=== PATIENT | male | born 1960 | race Caucasian/White ===

== ENCOUNTER → 2018-09-23 09:54 | Outpatient (CLI) | payer MEDICARE, OTHER, SELFPAY ==
--- NOTE | 2018-09-23 | US_ITS ---
US abdomen limited History:Acute abdominal pain with fever and vomiting Ordering Physician:Marianna Love Patient Age: 58 years Comparison:None Findings: Pancreas:Unremarkable. No obvious mass or abnormal fluid collection. No ductal dilatation Liver:No focal liver lesions demonstrated. Homogeneous echogenicity. No intrahepatic biliary ductal dilatation evident. There is appropriate direction of blood flow within the portal vein. The portal vein is upper normal at 14 mm. Right Kidney:Right kidney has been removed. Left kidney has a polycystic appearance measuring 11 x 5 x 5 cm. Gallbladder:No gallstones are.. There is a small amount sludge within the gallbladder. Common bile duct is normal at 2 mm. No gallbladder wall thickening or pericholecystic fluid. Impression: 1. Small amount of gallbladder sludge nonspecific. No stones apparent. 2. Absent right kidney with polycystic left kidney. 3. Mild prominence of the portal vein
== END ==
PROVIDERS: PCP Family Medicine; Visit Provider Nurse Practitioner Family
DX: R11.10 Vomiting, unspecified (principal); R50.9 Fever, unspecified; R10.10 Upper abdominal pain, unspecified
CPT/HCPCS: 76705

== ENCOUNTER 2018-10-14 11:22 | Inpatient (IN) ==
--- NOTE | 2018-10-14 11:42 | Emergency Department Note ---
[facility] – [place] Disposition Clinical Impression: Abdominal pain Qualifiers: Abdominal location: left upper quadrant Qualified Code(s): R10.12 - Left upper quadrant pain Disposition: Xfer Other Condition on Discharge: Fair (pt sent to [facility] ER for further evaluation.) Referrals: Demetri Gilman MD [Primary Care Provider] - Medical Decision Making - Richard Inquiry Pt receiving controlled substance: No Vital Signs: 10/14/18 11:45 Temperature 97.9 F Temperature Source Oral Pulse Rate [Left Radial] 77 Respiratory Rate 18 Blood Pressure [Right Arm] 133/88 Blood Pressure Mean [Right Arm] 103 Blood Pressure Source [Right Arm] Automatic Cuff Blood Pressure Position [Right Arm] Sitting 02 Sat by Pulse Oximetry 100 Oxygen Delivery Method Room Air - Lab Data Lab results reviewed: Yes: I reviewed the patient's lab results. UA pos. for proteinuria, hematuria [facility] [place] HPI - General Stated complaint: left side and stomach pain Time Seen by Provider: 10/14/18 11:40 HEENT Symptoms (Recalled from RN notes): No Resp Symptoms (Recalled from RN notes): No Skin Symptoms (Recalled from RN notes): No GI/ Symptoms (Recalled from RN notes): Yes MS Symptoms (Recalled from RN notes): No Card Symptoms (Recalled from RN notes): No Other (Recalled from RN notes): No - History of Present Illness Onset (ago): week(s) Location: abdomen Radiation: abdomen Severity: moderate, severe Consistency: intermittent Relieving factors: none Exacerbating factors: none Treatments prior to arrival: none - Related Data Allergies Allergy/AdvReac Type Severity Reaction Status Date / Time NO KNOWN ALLERGIES Allergy Uncoded 09/28/17 15:29 [facility] History - Hepatitis A Screen Drug use history?: No Attestation statement:: This patient has been screened for Hepatitis A risk factors. I have reviewed the patient's past medical history: Yes Medical History: Reports:: Gall Bladder Disease, Gastroesophageal Reflux Disease(GERD), Hypertension, Renal Disease Other Surgeries: Yes: Other - Social History Educational Level: Attended High School ROS Obtained: Yes Systems reviewed as appropriate & no additional complaints - Constitutional Constitutional: Reports poor appetite, Reports weakness - ENT Ears, Nose, Mouth, and Throat: Denies otalgia, Denies sinus pressure, Denies sore throat - Cardiovascular Cardiovascular: Denies chest pain - Respiratory Respiratory: No chest congestion - Gastrointestinal Gastrointestingal: Reports: abdominal pain, cramping, nausea, vomiting - Genitourinary Male Genitourinary: Reports difficulty urinating, Reports flank pain - Integumentary/Breasts Skin/Breast: Denies rash Physical Exam - General General appearance: alert, in no apparent distress - Head Head exam: atraumatic, normocephalic - Respiratory Respiratory exam: Present: normal lung sounds bilaterally - Cardiovascular Cardiovascular exam: Present: normal rhythm - Abdominal Exam Abdominal exam: Present: soft, tenderness, guarding. Absent: rebound, rigidity Abdominal tenderness: Present: RUQ, LUQ - Back Exam Back exam: Absent: CVA tenderness (R), CVA tenderness (L) - Neurological Exam Neurological exam: Present: alert, oriented X3 - Skin Skin exam: Present: warm, dry, intact, normal color
--- NOTE | 2018-10-14 12:29 | Emergency Department Note ---
ED Disposition Clinical Impression: Acute pancreatitis Qualifiers: Pancreatitis type: unspecified pancreatitis type Acute pancreatitis complication: no infection or necrosis Qualified Code(s): K85.90 - Acute pancreatitis without necrosis or infection, unspecified Disposition: Still a Patient Condition on Discharge: Fair Referrals: Demetri Gilman MD [Primary Care Provider] - - Critical Care Critical Care Time: No Attestation: On 10/14/18, the high probability of a clinically significant, sudden or life threatening deterioration of the following system(s) required my full and direct attention, intervention and personal management. The time I documented below is in addition to time spent performing reported procedures but includes the following listed in this critical care notation. Medical Decision Making - Richard Inquiry Pt receiving controlled substance: No Richard was queried for this patient: Yes Reference #:: [id number] Comment: 3 rxs for gabapentin Vital Signs: 10/14/18 11:45 10/14/18 12:15 Temperature 97.9 F 97.9 F Temperature Source Oral Oral Pulse Rate [Left Radial] 77 77 Respiratory Rate 18 18 Blood Pressure [Right Arm] 133/88 133/88 Blood Pressure Mean [Right Arm] 103 103 Blood Pressure Source [Right Arm] Automatic Cuff Automatic Cuff Blood Pressure Position [Right Arm] Sitting Sitting 02 Sat by Pulse Oximetry 100 100 Oxygen Delivery Method Room Air Room Air - Lab Data Lab Results 10/14/18 11:55: Urine Color Yellow, Urine Appearance Clear, Urine pH 8.5, Ur Specific [place] 1.020, Urine Protein 3+, Urine Glucose (UA) 100, Urine Ketones Negative, Urine Blood Trace, Urine Nitrate Negative, Urine Bilirubin Negative, Urine Urobilinogen 0.2, Ur Leukocyte Esterase Negative 10/14/18 12:27: WBC 4.1 L, RBC 4.76, Hgb 14.0 L, Hct 43.6, MCV 91.6, MCH 29.4, MCHC 32.1, RDW 13.5, Plt Count 232, MPV 7.2 L, Neut % (Auto) 64.1, Lymph % (Auto) 19.4, [place] % (Auto) 12.2 H, Eos % (Auto) 3.7, Baso % (Auto) 0.5, Neut # (Auto) 2.7, Lymph # (Auto) 0.8, [place] # (Auto) 0.5, Eos # (Auto) 0.2, Baso # (Auto) 0.0 10/14/18 12:27: Sodium 137, Potassium 3.7, Chloride 94 L, Carbon Dioxide 35 H, Anion Gap 11.7, BUN 28 H, Creatinine 6.04 H, Estimated Creat Clear 13, Estimated GFR 10 L*, Est GFR ( Amer) 12 L*, Glucose 93, Calcium 9.2, Total Bilirubin 0.4, AST 26, ALT 36, Alkaline Phosphatase 211 H, Total Protein 8.8 H, Albumin 3.9, Globulin 4.9 H, Albumin/Globulin Ratio 0.8 L, Amylase 164 H, Lipase 680 H Result diagrams: 10/14/18 12:27 10/14/18 12:27 - Radiology Data #1 Image(s): Chest Image Reviewed: Yes I have reviewed radiologist's interpretation IMPRESSION: COPD, no acute finding Dictated By: Mike Charles MD Signed By: <Electronically signed by Mike Charles MD in OV> 10/14/18 1259 - CT Data CT Scan: Abdomen, Pelvis Time Received: 13:[address] Reviewed: Yes: I have viewed the radiologist's interpretation Findings Narrative: IMPRESSION: 1. Noncalcified pulmonary nodules in the lung bases nonspecific. Consider [address] follow-up 2. Status post renal transplant with renal allograft in the right lower quadrant. No hydronephrosis. There is some cortical thinning of the transplanted kidney. Minimal stranding noted the fat in the ureter of the transplant nonspecific. Urinary bladder wall slightly thickened at the ureteral insertion 3. Fluid-filled loops of jejunum nonspecific but could be related to enteritis 4. The kidneys are abnormal with heterogeneous density with renal cysts noted. Ultrasound of the kidneys may be of further value if clinically warranted Dictated By: Mike Charles MD Signed By: <Electronically signed by Mike Charles MD in OV> 10/14/18 1312 - Physician Consults Physician Consulted: Mukul Time: 13:30 Reason -: Admission Comment/Response: Agrees to admit the patient to the hospital. We discussed the patient's clinical information, including history, exam, laboratory and radiology results and ED course. Per hospital procedure, I will write temporary bridge inpatient orders on the patient. Specific orders requested by the admitting physician: Normal saline at 75 cc/h, antiemetics, n.p.o., morphine 2 mg every 4 hours as needed. General Adult HPI - General Chief complaint: Abdominal Pain Stated complaint: left side and stomach pain Time Seen by Provider: 10/14/18 12:26 Mode of Arrival: Ambulatory Limitations: No Limitations Description of Symptoms (Recalled from ER Triage Doc. by RN): to ed per pvt car with c/o lt side upper abd pain x 2 weeks seen PCP and had a ultrasound "showed sludge" pt with hx of ckf currently on dialysis. last dialysis today - History of Present Illness HPI narrative: Complains of mid abdominal pain all the way across his whole abdomen into his left flank for over 2 weeks. Pain is constant, but worsens at times. Sometimes keeps him from sleep. Associated with nausea and vomiting. Says he vomits every time he eats or drinks anything. Saw his primary care provider a week and a half ago. Had a gallbladder ultrasound done as an outpatient which showed sludge. Prescribed a medication which sounds like Zofran, says it did not help. Tried to get into see his physician today because of continued symptoms, but says he could not be seen until 9 AM tomorrow, therefore came to the urgent treatment center and was sent from there to the emergency room. Denies fever. Denies diarrhea or constipation. Bowel movement yesterday. Patient is a hemodialysis patient for 10 years. He gets his dialysis in [place] on Wednesday, Wednesday, Wednesday. He had dialysis today. Onset (ago): week(s) Location: abdomen Severity: moderate, severe Relieving factors: none Exacerbating factors: none Treatments prior to arrival: none - Related Data Home Medications Medication Instructions Recorded Confirmed Atorvastatin Calcium [Atorvastatin 40 mg PO DAILY 10/14/18 10/14/18 40mg Tab] Ergocalciferol (Vitamin D2) 50,000 unit PO DAILY 10/14/18 10/14/18 [Drisdol 50,000 units (1.25mg) capsule] Ferrous Gluconate [Ferrous 324 mg PO DAILY 10/14/18 10/14/18 Gluconate 324mg Tab] Folic Acid [Folic Acid 1mg tablet] 1,000 mcg PO DAILY 10/14/18 10/14/18 Gabapentin [Gabapentin 100mg Cap] 300 mg PO TID 10/14/18 10/14/18 Hydralazine HCl [Apresoline 10mg 10 mg PO DAILY 10/14/18 10/14/18 tablet] Isosorbide Dinitrate [Isordil 10mg 10 mg PO DAILY 10/14/18 10/14/18 tablet] Lanthanum Carbonate [Fosrenol] 1,000 mg PO DAILY 10/14/18 10/14/18 Metoclopramide HCl [Metoclopramide 10 mg PO DAILY 10/14/18 10/14/18 10mg Tablet] Metoprolol Succinate 50 mg PO DAILY 10/14/18 10/14/18 Omeprazole [Omeprazole 20mg 20 mg PO DAILY 10/14/18 10/14/18 Capsule] Ondansetron [Zofran 4mg ODT] 4 mg PO Q6 PRN 10/14/18 10/14/18 Sulfamethoxazole/Trimethoprim 1 each PO BID 10/14/18 10/14/18 [Bactrim DS tablet] levoFLOXacin [Levofloxacin 750MG 750 mg PO DAILY 10/14/18 10/14/18 Tablet] raNITIdine HCl [Zantac] 150 mg PO DAILY 10/14/18 10/14/18 Allergies Allergy/AdvReac Type Severity Reaction Status Date / Time NO KNOWN ALLERGIES Allergy Uncoded 09/28/17 15:29 [facility] History - Hepatitis A Screen Drug use history?: No High risk sexual behaviors?: No History of sexually transmitted infection?: No Currently employed?: No Childcare worker?: No Do you have indoor plumbing?: No Do you have electricity?: Yes Attestation statement:: This patient has been screened for Hepatitis A risk factors. I have reviewed the patient's past medical history: Yes Medical History: Reports:: Gall Bladder Disease, Gastroesophageal Reflux Disease(GERD), Hypertension, Renal Disease Other Surgeries: Yes: Other - Social History Educational Level: Attended High School Alcohol Intake: never - Psychiatric History Expresses thoughts of harming self/others: None Suicide Plan Description: No Plan ROS Obtained: Yes All systems reviewed & no additional complaints - Constitutional Constitutional: Denies fever(s) - Gastrointestinal Gastrointestingal: Reports: abdominal pain, nausea, vomiting. Denies: constipation, diarrhea Physical Exam - General General appearance: alert, in no apparent distress - Head Head exam: atraumatic, normocephalic - Eye Eye exam: Present: normal appearance, PERRL, EOMI - ENT ENT exam: Present: mucous membranes moist - Neck Neck exam: Present: normal inspection, trachea midline - Chest Chest inspection: Present: normal inspection, symmetric chest wall rise - Respiratory Respiratory exam: Present: normal lung sounds bilaterally. Absent: respiratory distress - Cardiovascular Cardiovascular exam: Present: regular rate, normal rhythm, normal heart sounds - Abdominal Exam Abdominal exam: Present: soft, tenderness, guarding. Absent: rebound, rigidity Comment: Moderately tender epigastrium, periumbilical area, left upper quadrant, and left mid abdomen. - Extremities Exam Extremities exam: Present: normal inspection - Neurological Exam Neurological exam: Present: alert, oriented X3 - Psychiatric Psychiatric exam: Present: normal affect, normal mood - Skin Skin exam: Present: warm, dry
[2018-10-14 12:45] LABS: Basophils % 0.5 % (0.1-2.0); Eosinophils # 0.2 K/mm3 (0.0-0.4); Eosinophils % 3.7 % (0.1-12.0); Hematocrit 43.6 % (42.0-52.0); Lymphocytes # 0.8 K/mm3 (0.7-4.5); Lymphocytes % 19.4 % (10-50); Mean Corpuscular HGB Conc 32.1 g/dL (31.8-35.4); Mean Corpuscular Hemoglobin 29.4 pg (27.0-31.2); Mean Corpuscular Volume 91.6 fl (80-94); Mean Platelet Volume 7.2 fl (7.4-10.4); Monocytes # 0.5 K/mm3 (0.1-1.0); Monocytes % 12.2 % (1.7-9.3); Neutrophils # 2.7 K/mm3 (1.8-7.8); Neutrophils % 64.1 % (37.0-80.0); Platelet Count 232 K/mm3 (142-424); Red Blood Count 4.76 M/mm3 (4.60-6.20); Red Cell Distribution Width 13.5 % (11.5-17.5); White Blood Count 4.1 K/mm3 (4.8-10.8)
[2018-10-14 12:58] LABS: Albumin Level 3.9 gm/dL (3.4-5.0); Albumin/Globulin Ratio 0.8 (1.1-1.8); Anion Gap 11.7 mEq/L (5-15); Bilirubin,Total 0.4 mg/dL (0.2-1.0); Calcium 9.2 mg/dL (8.5-10.1); Globulin 4.9 gm/dl (1.3-3.2); Potassium 3.7 mmoL/L (3.5-5.1); Total Protein,Serum 8.8 gm/dL (6.4-8.2)
--- NOTE | 2018-10-14 15:20 | Pharmacy Consult Notes ---
[facility] Pharmacy VTE Monitoring - Patient Demographics Admission date: 10/14/18 Report Date: 10/14/18 Time: 15:20 Allergies/Adverse Reactions: Patient Allergies NO KNOWN ALLERGIES Allergy (Uncoded 09/28/17 15:29) Height: 1.63 m Weight: 69.853 kg Patient Problems: Current Active Problems Acute pancreatitis (Acute) - VTE Risk Labs: VTE Related Lab Results Hgb 14.0 g/dL (14.1-18.0) L 10/14/18 12:27 Hct 43.6 % (42.0-52.0) 10/14/18 12:27 Plt Count 232 K/mm3 (142-424) 10/14/18 12:27 BUN 28 mg/dL (7-18) H 10/14/18 12:27 Creatinine 6.04 mg/dL (0.70-1.30) H 10/14/18 12:27 Estimated Creat Clear 13 mL/min (50-200) 10/14/18 12:27 Was VTE Risk Assessment Performed: Yes VTE Score: 1 VTE Risk Level: Low Risk - Prophylaxis VTE Prophylaxis Ordered?: Yes Types of VTE Prophylaxis: TEDS Knee High Location of Applied Device: Bilateral Lower Extremeties - VTE Diagnosis Confirmed Treatment or plan recommended: Continue Current Treatment
--- NOTE | 2018-10-14 17:35 | History & Physical Report ---
*Admission Date: 10/14/18 *Chief complaint: Abdominal pain *History of present illness: 58-year-old male with end-stage renal disease who is status post kidney transplant presented to the emergency department with episodes of periumbilical abdominal pain that radiates to both the right and left side that has been present off and on for 2 weeks. Patient was seen in the office 2 weeks ago and a gallbladder ultrasound was ordered which showed some sludge. He continues to have episodes of crampy abdominal pain that are sometimes associated with vomiting. He does not believe he has had any fevers. He presented to the urgent treatment clinic and was referred over to the emergency department for further evaluation. Workup in the emergency department was significant for mild elevations of both amylase and lipase with a CT scan more consistent with enteritis. Patient has been admitted for IV fluids and pain control and antiemetics. Patient has end-stage renal disease and undergoes hemodialysis on Mondays, Wednesdays, and Fridays [facility] History Medical History: Reports:: Coronary Artery Disease, Gall Bladder Disease, Gastroesophageal Reflux Disease(GERD), Hypertension, Renal Disease Denies:: Cancer, Diabetes Mellitus Type 1, Diabetes Mellitus Type 2 Comment: End-stage renal disease-hemodialysis 3 days a week Other Surgeries: Yes: Cardiac Catheterization, Coronary Stent, Other (kidney transplant) Amputation: No - *Social History Educational Level: Completed High School Smoking Status: Never smoker Alcohol Intake: never Occupational Status: disabled - Psychiatric History Expresses thoughts of harming self/others: None Suicide Plan Description: No Plan *Family Hx:: Hypertension Review of Systems - Review of Systems Review of systems:: pertinent systems reviewed and negative unless documented below - Constitutional Denies body ache(s), Denies chills, Denies fever(s) - *Cardiovascular Denies chest pain at rest - *Respiratory Denies change in phlegm color, Denies chest congestion, Denies cough - *Gastrointestinal Reports cramping, Reports nausea, Reports vomiting, Denies belching, Denies bloating, Denies heartburn, Denies pain with swallowing - *Genitourinary Denies difficulty urinating - *Neurologic Reports weakness Meds Home Medications Medication Instructions Recorded Confirmed Type Atorvastatin Calcium [Atorvastatin 40 mg PO DAILY 10/14/18 10/14/18 History 40mg Tab] Ergocalciferol (Vitamin D2) 50,000 unit PO WEEKLY 10/14/18 10/14/18 History [Drisdol 50,000 units (1.25mg) capsule] Ferrous Gluconate [Ferrous 324 mg PO DAILY 10/14/18 10/14/18 History Gluconate 324mg Tab] Folic Acid [Folic Acid 1mg tablet] 1 mg PO DAILY 10/14/18 10/14/18 History Gabapentin [Gabapentin 100mg Cap] 100 mg PO BID 10/14/18 10/14/18 History Hydralazine HCl [Apresoline 10mg 10 mg PO BID 10/14/18 10/14/18 History tablet] Isosorbide Dinitrate [Isordil 10mg 10 mg PO BID 10/14/18 10/14/18 History tablet] Lanthanum Carbonate [Fosrenol] 1,000 mg PO DAILY 10/14/18 10/14/18 History Metoclopramide HCl [Metoclopramide 10 mg PO DAILY 10/14/18 10/14/18 History 10mg Tablet] Metoprolol Succinate 100 mg PO DAILY 10/14/18 10/14/18 History Omeprazole [Omeprazole 20mg 20 mg PO DAILY 10/14/18 10/14/18 History Capsule] Ondansetron [Zofran 4mg ODT] 4 mg PO Q6HP PRN 10/14/18 10/14/18 History Sulfamethoxazole/Trimethoprim 1 each PO BID 10/14/18 10/14/18 History [Bactrim DS tablet] levoFLOXacin [Levofloxacin 750MG 750 mg PO DAILY 10/14/18 10/14/18 History Tablet] raNITIdine HCl [Zantac] 150 mg PO BID 10/14/18 10/14/18 History Allergies Allergy/AdvReac Type Severity Reaction Status Date / Time NO KNOWN ALLERGIES Allergy Uncoded 09/28/17 15:29 Exam Vital signs and Labs for Last 24 Hours: Temp Pulse Resp BP Pulse Ox 98.1 F 92 H 16 139/88 95 10/14/18 15:32 10/14/18 15:32 10/14/18 15:32 10/14/18 15:32 10/14/18 15:32 Laboratory Results - last 24 hr 10/14/18 11:55: Urine Color Yellow, Urine Appearance Clear, Urine pH 8.5, Ur Specific [place] 1.020, Urine Protein 3+, Urine Glucose (UA) 100, Urine Ketones Negative, Urine Blood Trace, Urine Nitrate Negative, Urine Bilirubin Negative, Urine Urobilinogen 0.2, Ur Leukocyte Esterase Negative 10/14/18 12:27: WBC 4.1 L, RBC 4.76, Hgb 14.0 L, Hct 43.6, MCV 91.6, MCH 29.4, MCHC 32.1, RDW 13.5, Plt Count 232, MPV 7.2 L, Neut % (Auto) 64.1, Lymph % (Auto) 19.4, [place] % (Auto) 12.2 H, Eos % (Auto) 3.7, Baso % (Auto) 0.5, Neut # (Auto) 2.7, Lymph # (Auto) 0.8, [place] # (Auto) 0.5, Eos # (Auto) 0.2, Baso # (Auto) 0.0 10/14/18 12:27: Sodium 137, Potassium 3.7, Chloride 94 L, Carbon Dioxide 35 H, Anion Gap 11.7, BUN 28 H, Creatinine 6.04 H, Estimated Creat Clear 13, Estimated GFR 10 L*, Est GFR ( Amer) 12 L*, Glucose 93, Calcium 9.2, Total Bilirubin 0.4, AST 26, ALT 36, Alkaline Phosphatase 211 H, Total Protein 8.8 H, Albumin 3.9, Globulin 4.9 H, Albumin/Globulin Ratio 0.8 L, Amylase 164 H, Lipase 680 H I & O for Last 24 hours: Intake & Output 10/12/18 10/13/18 10/14/18 10/15/18 11:59 11:59 11:59 11:59 Weight 154 lb 120 lb 2 oz - Constitutional no acute distress - *Routine Respiratory Exam Present: CTA bilaterally - *Routine Cardiovascular Exam Present: RRR, Normal S1, Normal S2 - *Routine Abdominal Exam Present: soft, normoactive bowel sounds, tenderness (Mild). Absent: distended, rebound, guarding, firm, rigid, mass Assessment and Plan (1) Acute pancreatitis Current visit: Yes Status: Acute Qualifiers: Pancreatitis type: unspecified pancreatitis type Acute pancreatitis complication: no infection or necrosis Qualified Code(s): K85.90 - Acute pancreatitis without necrosis or infection, unspecified Category: Medical Code(s): K85.90 - Acute pancreatitis without necrosis or infection, unspecified - Assessment and plan all Dx Assessment and Plan for all problems:: Patient has been admitted for IV fluids, intravenous narcotics and antiemetics. He will be kept n.p.o. overnight.
--- NOTE | 2018-10-15 07:20 | Progress Note ---
Internal Medicine - PN: Subj *Date: 10/15/18 *Time: 07:18 Interval history: Patient has no new complaints this morning. He reports that he had abdominal pain the night long. He had some brief nausea. He did not vomit. He did not have any diarrhea. He did not have any fevers. His nurse reports he did complain of pain and nausea at one point and was medicated and once his pain resolved so did his nausea. He admits he is hungry this morning Exam Vital signs and Labs for Last 24 Hours: Temp Pulse Resp BP Pulse Ox 97.8 F 84 18 136/78 97 10/15/18 04:00 10/15/18 04:00 10/15/18 04:00 10/15/18 04:00 10/15/18 04:00 Laboratory Results - last 24 hr 10/14/18 11:55: Urine Color Yellow, Urine Appearance Clear, Urine pH 8.5, Ur Specific [place] 1.020, Urine Protein 3+, Urine Glucose (UA) 100, Urine Ketones Negative, Urine Blood Trace, Urine Nitrate Negative, Urine Bilirubin Negative, Urine Urobilinogen 0.2, Ur Leukocyte Esterase Negative 10/14/18 12:27: WBC 4.1 L, RBC 4.76, Hgb 14.0 L, Hct 43.6, MCV 91.6, MCH 29.4, MCHC 32.1, RDW 13.5, Plt Count 232, MPV 7.2 L, Neut % (Auto) 64.1, Lymph % (Auto) 19.4, [place] % (Auto) 12.2 H, Eos % (Auto) 3.7, Baso % (Auto) 0.5, Neut # (Auto) 2.7, Lymph # (Auto) 0.8, [place] # (Auto) 0.5, Eos # (Auto) 0.2, Baso # (Auto) 0.0 10/14/18 12:27: Sodium 137, Potassium 3.7, Chloride 94 L, Carbon Dioxide 35 H, Anion Gap 11.7, BUN 28 H, Creatinine 6.04 H, Estimated Creat Clear 13, Estimated GFR 10 L*, Est GFR ( Amer) 12 L*, Glucose 93, Calcium 9.2, Total Bilirubin 0.4, AST 26, ALT 36, Alkaline Phosphatase 211 H, Total Protein 8.8 H, Albumin 3.9, Globulin 4.9 H, Albumin/Globulin Ratio 0.8 L, Amylase 164 H, Lipase 680 H I & O for Last 24 hours: Intake & Output 10/12/18 10/13/18 10/14/18 10/15/18 11:59 11:59 11:59 11:59 Intake Total 1026 / 1026 Balance 1026 / 1026 Weight 154 lb 120 lb 2 oz Narrative: He appears well and not in any distress. The abdomen is thin, flat, soft with minimal left lower quadrant tenderness. Bowel sounds are present Assessment and Plan (1) Acute pancreatitis Current visit: Yes Status: Acute Qualifiers: Pancreatitis type: unspecified pancreatitis type Acute pancreatitis complication: no infection or necrosis Qualified Code(s): K85.90 - Acute pancreatitis without necrosis or infection, unspecified Category: Medical Code(s): K85.90 - Acute pancreatitis without necrosis or infection, unspecified - Assessment and plan all Dx Assessment and Plan for all problems:: Await labs a.m. Patient's beginning to feel better and his CT scan as well as his current symptoms would really support more of a prolonged enteritis. Patient will be given clear liquids today. Should pain worsen he will be made n.p.o. again. I have added Bentyl 10 mg 3 times daily for abdominal cramping
[2018-10-15 07:23] LABS: Anion Gap 13.4 mEq/L (5-15); Potassium 4.4 mmoL/L (3.5-5.1)
--- NOTE | 2018-10-16 07:29 | Discharge Summary ---
General - General Admission date:: 10/14/18 Discharge date: 10/16/18 HPI HPI: 58-year-old male with end-stage renal disease who is status post kidney transplant presented to the emergency department with episodes of periumbilical abdominal pain that radiates to both the right and left side that has been present off and on for 2 weeks. Patient was seen in the office 2 weeks ago and a gallbladder ultrasound was ordered which showed some sludge. He continues to have episodes of crampy abdominal pain that are sometimes associated with vomiting. He does not believe he has had any fevers. He presented to the urgent treatment clinic and was referred over to the emergency department for further evaluation. Workup in the emergency department was significant for mild elevations of both amylase and lipase with a CT scan more consistent with enteritis. Patient has been admitted for IV fluids and pain control and antiemetics. Patient has end-stage renal disease and undergoes hemodialysis on Mondays, Wednesdays, and Fridays Hospital Course Hospital Course: Patient was admitted and made n.p.o., placed on IV fluids and ordered intravenous narcotics and antiemetics for pain and nausea respectively. Patient had occasional episodes of pain that were usually relieved with morphine. Nausea was treated with Phenergan. After the initial 24 hours of admission patient's diet was advanced to clear liquids. His exam was really more consistent with an enteritis than it was pancreatitis. CT scan was not supportive of pancreatitis either. Pancreatic enzymes were mildly elevated. On October 15 patient tolerated liquids and required pain medication 1 time as well as antiemetic one time. Patient only had nausea while hospitalized and did not have any vomiting nor did he have diarrhea. He was kept on normal saline at 50- 75 mL's per hour while hospitalized. Low rate was used due to patient's end- stage renal disease as I did not want to fluid overload him. On the morning of the patient was still having some mild discomfort at times but not enough to require medication. He was tolerating liquids. He was discharged home. His diagnosis is a prolonged enteritis. Patient will follow-up in my office on Wednesday of this week. He was discharged home with an antiemetic and an oral narcotic Objective Vital signs: Temp Pulse Resp BP Pulse Ox 97.6 F 71 16 130/80 96 10/16/18 04:00 10/16/18 04:00 10/16/18 04:00 10/16/18 04:00 10/16/18 04:00 no acute distress - *Routine Abdominal Exam Present: soft, normoactive bowel sounds. Absent: tenderness, distended, rebound, guarding, firm, rigid Results Labs on day of discharge: Labs from last 24 hours 10/15/18 06:48 Sodium 139 Potassium 4.4 Chloride 99 Carbon Dioxide 31 Anion Gap 13.4 BUN 44 H D Creatinine 8.37 H D Estimated Creat Clear 7 Estimated GFR 7 L* Est GFR ( Amer) 8 L* D Glucose 79 Calcium 8.0 L D Lipase 306 DS: Diagnosis - Discharge Diagnosis (1) Enteritis Status: Acute (2) Acute pancreatitis Status: Acute Discharge Plan - Patient Discharge Instructions Patient Instructions: DI for Pancreatitis - Follow up Plan Follow up with: Demetri Gilman MD [Primary Care Provider] - 10/21/18 1:00 pm Disposition: Home, Self-[facility] Medications: Home Medications Medication Instructions Recorded Confirmed Type Atorvastatin Calcium [Atorvastatin 40 mg PO DAILY 10/14/18 10/14/18 History 40mg Tab] Ergocalciferol (Vitamin D2) 50,000 unit PO WEEKLY 10/14/18 10/14/18 History [Drisdol 50,000 units (1.25mg) capsule] Ferrous Gluconate [Ferrous 324 mg PO DAILY 10/14/18 10/14/18 History Gluconate 324mg Tab] Folic Acid [Folic Acid 1mg tablet] 1 mg PO DAILY 10/14/18 10/14/18 History Gabapentin [Gabapentin 100mg Cap] 100 mg PO BID 10/14/18 10/14/18 History Hydralazine HCl [Apresoline 10mg 10 mg PO BID 10/14/18 10/14/18 History tablet] Isosorbide Dinitrate [Isordil 10mg 10 mg PO BID 10/14/18 10/14/18 History tablet] Lanthanum Carbonate [Fosrenol] 1,000 mg PO DAILY 10/14/18 10/14/18 History Metoclopramide HCl [Metoclopramide 10 mg PO DAILY 10/14/18 10/14/18 History 10mg Tablet] Metoprolol Succinate 100 mg PO DAILY 10/14/18 10/14/18 History Omeprazole [Omeprazole 20mg 20 mg PO DAILY 10/14/18 10/14/18 History Capsule] Sulfamethoxazole/Trimethoprim 1 each PO BID 10/14/18 10/14/18 History [Bactrim DS tablet] levoFLOXacin [Levofloxacin 750MG 750 mg PO DAILY 10/14/18 10/14/18 History Tablet] raNITIdine HCl [Zantac] 150 mg PO BID 10/14/18 10/14/18 History Dicyclomine HCl [Bentyl 10mg 10 mg PO BID #10 capsule 10/16/18 Rx capsule] Hydrocodone/Acetaminophen [[place] 1 each PO BIDP PRN 5 Days #10 tab 10/16/18 Rx 5-325 Tablet] Ondansetron [Zofran 4mg ODT] 4 mg PO Q6HP PRN #30 tab.rapdis 10/16/18 Rx Prescriptions/Medication Reconciliation: New Hydrocodone/Acetaminophen [[place] 5-325 Tablet] 1 each PO BIDP PRN 5 Days #10 tab PRN Reason: Moderate Pain Dicyclomine HCl [Bentyl 10mg capsule] 10 mg PO BID #10 capsule Continue Omeprazole [Omeprazole 20mg Capsule] 20 mg PO DAILY Folic Acid [Folic Acid 1mg tablet] 1 mg PO DAILY Ferrous Gluconate [Ferrous Gluconate 324mg Tab] 324 mg PO DAILY Ergocalciferol (Vitamin D2) [Drisdol 50,000 units (1.25mg) capsule] 50,000 unit PO WEEKLY raNITIdine HCl [Zantac] 150 mg PO BID Metoprolol Succinate 100 mg PO DAILY Isosorbide Dinitrate [Isordil 10mg tablet] 10 mg PO BID Hydralazine HCl [Apresoline 10mg tablet] 10 mg PO BID Atorvastatin Calcium [Atorvastatin 40mg Tab] 40 mg PO DAILY Ondansetron [Zofran 4mg ODT] 4 mg PO Q6HP PRN #30 tab.rapdis PRN Reason: Nausea Gabapentin [Gabapentin 100mg Cap] 100 mg PO BID Lanthanum Carbonate [Fosrenol] 1,000 mg PO DAILY Discontinued levoFLOXacin [Levofloxacin 750MG Tablet] 750 mg PO DAILY Sulfamethoxazole/Trimethoprim [Bactrim DS tablet] 1 each PO BID Metoclopramide HCl [Metoclopramide 10mg Tablet] 10 mg PO DAILY
== END 2018-10-16 11:19 | disposition home or self-care (01) | DRG 391 ==
LOC: UTC 11:22 → 2ND 13:35
PROVIDERS: ADMIT Family Medicine; ATTEND Family Medicine
CPT/HCPCS: 36415; 71020; 71046; 74176; 80048; 80053; 81003; 82150; 83690; 85025; 99284; J2405

== ENCOUNTER 2018-10-21 17:59 | Inpatient (IN) ==
--- NOTE | 2018-10-21 19:08 | Emergency Department Note ---
[facility] Disposition Clinical Impression: Abdominal pain, generalized Vomiting Qualifiers: Vomiting type: unspecified Vomiting Intractability: unspecified Nausea presence: with nausea Qualified Code(s): R11.2 - Nausea with vomiting, unspecified Disposition: Admitted as Observation Condition on Discharge: Fair Medical Decision Making - Medical Records Medical records reviewed: Yes: I reviewed the patient's medical records. - Richard Inquiry Pt receiving controlled substance: No Richard was queried for this patient: No Vital Signs: 10/21/18 18:20 10/21/18 19:13 10/21/18 20:42 Temperature 98.1 F 98.2 F Temperature Source Oral Oral Pulse Rate Pulse Rate [Right Brachial] 114 H 102 H 101 H Respiratory Rate 18 16 16 Blood Pressure Blood Pressure [Right Arm] 119/87 109/73 L 118/72 Blood Pressure Mean [Right Arm] 97 85 87 Blood Pressure Source [Right Arm] Automatic Cuff Automatic Cuff Automatic Cuff Blood Pressure Position [Right Arm] Sitting Sitting Sitting 02 Sat by Pulse Oximetry 98 97 100 Oxygen Delivery Method Room Air Room Air 10/21/18 21:05 10/21/18 22:52 Temperature 98.2 F Temperature Source Oral Pulse Rate 99 H Pulse Rate [Right Brachial] 99 H Respiratory Rate 16 16 Blood Pressure 123/81 Blood Pressure [Right Arm] 123/81 Blood Pressure Mean [Right Arm] 95 Blood Pressure Source [Right Arm] Automatic Cuff Blood Pressure Position [Right Arm] Sitting 02 Sat by Pulse Oximetry 100 Oxygen Delivery Method Room Air Room Air - Lab Data Lab Results 10/21/18 19:25: WBC 7.6, RBC 5.14, Hgb 16.2, Hct 46.9, MCV 91.1, MCH 31.4 H, MCHC 34.5, RDW 14.1, Plt Count 271, MPV 7.3 L, Neut % (Auto) 78.7, Lymph % (Auto) 12.4, [place] % (Auto) 8.0, Eos % (Auto) 0.4, Baso % (Auto) 0.5, Neut # (Auto) 5.9, Lymph # (Auto) 0.9, [place] # (Auto) 0.6, Eos # (Auto) 0.0, Baso # (Auto) 0.0 10/21/18 20:20: Sodium 136, Potassium 5.3 H, Chloride 91 L, Carbon Dioxide 34 H, Anion Gap 16.3 H, BUN 21 H, Creatinine 7.73 H, Estimated Creat Clear 9, Estimated GFR 7 L*, Est GFR ( Amer) 9 L*, Glucose 110 H, Calcium 9.4, Total Bilirubin 0.5, AST 21, ALT 29, Alkaline Phosphatase 264 H, Total Protein 9.4 H, Albumin 4.3, Globulin 5.1 H, Albumin/Globulin Ratio 0.8 L 10/21/18 20:20: Troponin I 0.06, Amylase 121 H, Lipase 259 Result diagrams: 10/21/18 19:25 10/21/18 20:20 Orders (Tests/Meds): ED MEDICATIONS Generic Name Dose Route Start Last Admin Trade Name Freq PRN Reason Stop Dose Admin Dicyclomine HCl 10 mg 10/22/18 09:00 Bentyl 10mg Capsule PO 11/21/18 08:59 BID [facility] Ergocalciferol 50,000 unit 10/21/18 22:34 Drisdol 50,000 Units (1.25mg) Capsule PO 11/20/18 22:33 WEEKLY [facility] Folic Acid 1 mg 10/22/18 09:00 Folic Acid 1mg Tablet PO 11/21/18 08:59 DAILY [facility] Gabapentin 100 mg 10/22/18 09:00 Neurontin 100mg Capsule PO 11/21/18 08:59 BID [facility] Hydralazine HCl 10 mg 10/22/18 09:00 Apresoline 10mg Tablet PO 11/21/18 08:59 BID [facility] Lactated Ringer's 1,000 mls @ 100 mls/hr 10/21/18 22:34 Lactated Ringer's 1000 Ml Bag IV 11/20/18 22:33 .Q10H [facility] Isosorbide Dinitrate 10 mg 10/22/18 09:00 Isordil 10mg Tablet PO 11/21/18 08:59 BID [facility] Metoprolol Succinate 100 mg 10/22/18 09:00 Toprol Xl 100mg Tablet PO 11/21/18 08:59 DAILY [facility] Non-Formulary Medication 324 mg 10/22/18 09:00 Ferrous Gluconate [Ferrous Gluconate 324mg Tab] PO 11/21/18 08:59 DAILY [facility] Non-Formulary Medication 1,000 mg 10/22/18 09:00 Lanthanum Carbonate [Fosrenol] PO 11/21/18 08:59 DAILY [facility] Ondansetron HCl 4 mg 10/21/18 22:34 Zofran 4mg/2ml Vial IV 11/20/18 22:33 Q8HP PRN Nausea Ondansetron HCl 4 mg 10/21/18 22:34 Zofran 4mg Odt PO 11/20/18 22:33 Q6HP PRN Nausea Sodium Chloride 10 ml 10/21/18 22:34 Saline Flush 10ml Syringe IV 11/20/18 19:19 NEEDED PRN Maintain IV Site Sodium Chloride 10 ml 10/21/18 22:34 Saline Flush 10ml Syringe IV 11/20/18 22:33 NEEDED PRN Maintain IV Site Discontinued Medications Generic Name Dose Route Start Last Admin Trade Name Freq PRN Reason Stop Dose Admin Famotidine 20 mg 10/21/18 19:42 10/21/18 19:53 Pepcid 20mg/2ml Vial IV 10/21/18 19:43 20 mg ONCE ONE Administration Sodium Chloride 1,000 mls @ 999 mls/hr 10/21/18 19:45 Sod Chlor 0.9% 1000ml Bag IV 10/21/18 20:45 .Q1H1M [facility] Morphine Sulfate 4 mg 10/21/18 19:42 10/21/18 19:53 Morphine 4mg/Ml Syringe IV 10/21/18 19:43 4 mg ONCE ONE Administration Promethazine HCl 12.5 mg 10/21/18 19:42 10/21/18 19:53 Phenergan 25mg/Ml 1ml Vial IV 10/21/18 19:43 12.5 mg ONCE ONE Administration Sodium Chloride 10 ml 10/21/18 19:20 10/21/18 19:40 Saline Flush 10ml Syringe IV 11/20/18 19:19 10 ml NEEDED PRN Administration Maintain IV Site Sodium Chloride 25 ml 10/21/18 19:42 10/21/18 20:00 Sod Chlor 0.9% 25ml Bag IV 10/21/18 19:43 25 ml ONCE ONE Administration ORDERS Category Date Time Status CT abdomen pelvis wo con Stat Cat Scan 10/21/18 19:42 Taken Urinalysis and Microscopic Routine Lab 10/21/18 Ordered [facility] HPI - General Stated complaint: stomach problems,weakness Time Seen by Provider: 10/21/18 18:40 Mode of Arrival: Family Vehicle Source of Information: Patient Limitations: No Limitations Description of Symptoms (Recalled from Triage Doc. by RN): C/O CHILLS,BODY ACHES,VOMITING,WEAKNESS, LOWER ABDOMINAL CRAMPING AND IS A DIALYSIS PATIENT. HAD DIALYSIS TODAY. WAS ADMITTED TO HOSPITAL LAST WEDNESDAY FOR PANCREATITIS HEENT Symptoms (Recalled from RN notes): No Resp Symptoms (Recalled from RN notes): No Skin Symptoms (Recalled from RN notes): No MS Symptoms (Recalled from RN notes): No Functional Status (Recalled from RN notes): N/A - History of Present Illness Provider Complaint: He c/o abdominal pain. His pain worsened after his hemodialysis treatment today. He is also having fever and chills. He was ho spitalized 1 week ago here for pancreatitis and enteritis. Radiation: abdomen Severity scale (1-10): 8 - Related Data Home Medications Medication Instructions Recorded Confirmed RX: Atorvastatin Calcium 40 mg PO DAILY 10/14/18 10/14/18 [Atorvastatin 40mg Tab] RX: Ergocalciferol (Vitamin D2) 50,000 unit PO WEEKLY 10/14/18 10/14/18 [Drisdol 50,000 units (1.25mg) capsule] RX: Ferrous Gluconate [Ferrous 324 mg PO DAILY 10/14/18 10/14/18 Gluconate 324mg Tab] RX: Folic Acid [Folic Acid 1mg 1 mg PO DAILY 10/14/18 10/14/18 tablet] RX: Gabapentin [Gabapentin 100mg 100 mg PO BID 10/14/18 10/14/18 Cap] RX: Hydralazine HCl [Apresoline 10 mg PO BID 10/14/18 10/14/18 10mg tablet] RX: Isosorbide Dinitrate [Isordil 10 mg PO BID 10/14/18 10/14/18 10mg tablet] RX: Lanthanum Carbonate [Fosrenol] 1,000 mg PO DAILY 10/14/18 10/14/18 RX: Metoprolol Succinate 100 mg PO DAILY 10/14/18 10/14/18 RX: Omeprazole [Omeprazole 20mg 20 mg PO DAILY 10/14/18 10/14/18 Capsule] RX: raNITIdine HCl [Zantac] 150 mg PO BID 10/14/18 10/14/18 Previous Rx's Medication Instructions Recorded RX: Dicyclomine HCl [Bentyl 10mg 10 mg PO BID #10 capsule 10/16/18 capsule] RX: Ondansetron [Zofran 4mg 4 mg PO Q6HP PRN #30 tab.rapdis 10/16/18 ODT] Allergies Allergy/AdvReac Type Severity Reaction Status Date / Time No Known Allergies Allergy Verified 10/21/18 18:26 - Worker's Comp Is this a Worker's Comp case?: No [facility] History - Hepatitis A Screen Drug use history?: No High risk sexual behaviors?: No History of sexually transmitted infection?: No Currently employed?: No Childcare worker?: No Do you have indoor plumbing?: Yes Do you have electricity?: Yes Attestation statement:: This patient has been screened for Hepatitis A risk factors. I have reviewed the patient's past medical history: Yes Medical History: Reports:: Coronary Artery Disease, Gall Bladder Disease, Gastroesophageal Reflux Disease(GERD), Hypertension, Renal Disease Denies:: Cancer, Diabetes Mellitus Type 1, Diabetes Mellitus Type 2 Comment: End-stage renal disease-hemodialysis 3 days a week Other Surgeries: Yes: Cardiac Catheterization, Coronary Stent, Other (kidney transplant) Amputation: No - Social History Smoking Status: Unknown if ever smoked Tobacco Type: smokeless tobacco Alcohol Intake: never Occupational Status: disabled - Psychiatric History Expresses thoughts of harming self/others: None Suicide Plan Description: No Plan Family Hx:: Hypertension ROS Obtained: Yes All systems reviewed & no additional complaints - Constitutional Constitutional: Reports as per HPI, Reports chills, Reports fever(s) - Eyes Eyes: Reports blurry vision - ENT Ears, Nose, Mouth, and Throat: Reports system reviewed and no additional complaints, except as docu - Cardiovascular Cardiovascular: Denies chest pain, Denies chest pain at rest - Respiratory Respiratory: Yes system reviewed and no additional complaints, except as docu, No chest congestion, No cough, No dyspnea, No dyspnea on exertion, No coughing up blood - Gastrointestinal Gastrointestingal: Reports: as per HPI - Musculoskeletal Musculoskeletal: Reports system reviewed and no additional complaints, except as docu - Integumentary/Breasts Skin/Breast: Denies rash - Neurologic Neurologic: Reports system reviewed and no additional complaints, except as docu Physical Exam - General General appearance: alert, in no apparent distress - Head Head exam: atraumatic, normocephalic, normal inspection - Eye Eye exam: Present: normal appearance, PERRL, EOMI - ENT ENT exam: Present: normal exam, normal oropharynx, mucous membranes moist, TM's normal bilaterally, normal external ear exam - Chest Chest inspection: Present: normal inspection, symmetric chest wall rise. Absent: tenderness - Respiratory Respiratory exam: Present: normal lung sounds bilaterally. Absent: respiratory distress, wheezes - Cardiovascular Cardiovascular exam: Present: regular rate, normal rhythm. Absent: JVD - Abdominal Exam Abdominal exam: Present: tenderness, guarding, rigidity, diminished bowel sounds. Absent: rebound Abdominal tenderness: Present: RUQ, RLQ, LUQ, LLQ, moderate - Extremities Exam Extremities exam: Present: normal inspection, full ROM, normal capillary refill. Absent: calf tenderness - Neurological Exam Neurological exam: Present: alert, oriented X3 - Skin Skin exam: Present: warm, dry, intact, normal color - Lymphatic Lymphatic Findings: no adenopathy
[2018-10-21 19:32] LABS: Basophils % 0.5 % (0.1-2.0); Eosinophils % 0.4 % (0.1-12.0); Hematocrit 46.9 % (42.0-52.0); Hemoglobin 16.2 g/dL (14.1-18.0); Lymphocytes # 0.9 K/mm3 (0.7-4.5); Lymphocytes % 12.4 % (10-50); Mean Corpuscular HGB Conc 34.5 g/dL (31.8-35.4); Mean Corpuscular Hemoglobin 31.4 pg (27.0-31.2); Mean Corpuscular Volume 91.1 fl (80-94); Mean Platelet Volume 7.3 fl (7.4-10.4); Monocytes # 0.6 K/mm3 (0.1-1.0); Neutrophils # 5.9 K/mm3 (1.8-7.8); Neutrophils % 78.7 % (37.0-80.0); Platelet Count 271 K/mm3 (142-424); Red Blood Count 5.14 M/mm3 (4.60-6.20); Red Cell Distribution Width 14.1 % (11.5-17.5); White Blood Count 7.6 K/mm3 (4.8-10.8)
--- NOTE | 2018-10-21 19:47 | Emergency Department Note ---
ED Disposition Condition on Discharge: Fair - Critical Care Critical Care Time: No <Jovan Ling - Last Filed: 10/21/18 19:51> Condition on Discharge: Good Time of Disposition: 21:58 - Critical Care Critical Care Time: No <Manoj Munoz - Last Filed: 10/21/18 22:07> Clinical Impression: Abdominal pain, generalized Vomiting Qualifiers: Vomiting type: unspecified Vomiting Intractability: unspecified Nausea presence: with nausea Qualified Code(s): R11.2 - Nausea with vomiting, unspecified Disposition: Admitted as Observation Attestation: On 10/21/18, the high probability of a clinically significant, sudden or life threatening deterioration of the following system(s) required my full and direct attention, intervention and personal management. The time I documented below is in addition to time spent performing reported procedures but includes the following listed in this critical care notation. Medical Decision Making - Richard Inquiry Pt receiving controlled substance: Yes Richard was queried for this patient: Yes Reference #:: [id number] Risks and benefits of using a controlled substance: were not discussed with pt by me Comment: 5 rxs. last rx 10 norco on 10/17/18. other rxs are for gabapentin. - Lab Data Result diagrams: 10/21/18 19:25 <Jovan Ling - Last Filed: 10/21/18 19:51> - Lab Data Result diagrams: 10/21/18 19:25 10/21/18 20:20 <Manoj Munoz - Last Filed: 10/21/18 22:07> Vital Signs: 10/21/18 18:20 10/21/18 19:13 10/21/18 20:42 Temperature 98.1 F 98.2 F Temperature Source Oral Oral Pulse Rate [Right Brachial] 114 H 102 H 101 H Respiratory Rate 18 16 16 Blood Pressure [Right Arm] 119/87 109/73 L 118/72 Blood Pressure Mean [Right Arm] 97 85 87 Blood Pressure Source [Right Arm] Automatic Cuff Automatic Cuff Automatic Cuff Blood Pressure Position [Right Arm] Sitting Sitting Sitting 02 Sat by Pulse Oximetry 98 97 100 Oxygen Delivery Method Room Air Room Air 10/21/18 21:05 Temperature Temperature Source Pulse Rate [Right Brachial] 99 H Respiratory Rate 16 Blood Pressure [Right Arm] 123/81 Blood Pressure Mean [Right Arm] 95 Blood Pressure Source [Right Arm] Automatic Cuff Blood Pressure Position [Right Arm] Sitting 02 Sat by Pulse Oximetry 100 Oxygen Delivery Method Room Air - Lab Data Lab Results 10/21/18 19:25: WBC 7.6, RBC 5.14, Hgb 16.2, Hct 46.9, MCV 91.1, MCH 31.4 H, MCHC 34.5, RDW 14.1, Plt Count 271, MPV 7.3 L, Neut % (Auto) 78.7, Lymph % (Auto) 12.4, Bradford % (Auto) 8.0, Eos % (Auto) 0.4, Baso % (Auto) 0.5, Neut # (Auto) 5.9, Lymph # (Auto) 0.9, Bradford # (Auto) 0.6, Eos # (Auto) 0.0, Baso # (Auto) 0.0 10/21/18 20:20: Sodium 136, Potassium 5.3 H, Chloride 91 L, Carbon Dioxide 34 H, Anion Gap 16.3 H, BUN 21 H, Creatinine 7.73 H, Estimated Creat Clear 9, Chiqui mated GFR 7 L*, Est GFR ( Amer) 9 L*, Glucose 110 H, Calcium 9.4, Total Bilirubin 0.5, AST 21, ALT 29, Alkaline Phosphatase 264 H, Total Protein 9.4 H, Albumin 4.3, Globulin 5.1 H, Albumin/Globulin Ratio 0.8 L 10/21/18 20:20: Troponin I 0.06, Amylase 121 H, Lipase 259 Orders (Tests/Meds): ED MEDICATIONS Generic Name Dose Route Start Last Admin Trade Name Freq PRN Reason Stop Dose Admin Sodium Chloride 10 ml 10/21/18 19:20 10/21/18 19:40 Saline Flush 10ml Syringe IV 11/20/18 19:19 10 ml NEEDED PRN Administration Maintain IV Site Discontinued Medications Generic Name Dose Route Start Last Admin Trade Name Freq PRN Reason Stop Dose Admin Famotidine 20 mg 10/21/18 19:42 10/21/18 19:53 Pepcid 20mg/2ml Vial IV 10/21/18 19:43 20 mg ONCE ONE Administration Sodium Chloride 1,000 mls @ 999 mls/hr 10/21/18 19:45 Sod Chlor 0.9% 1000ml Bag IV 10/21/18 20:45 .Q1H1M [facility] Morphine Sulfate 4 mg 10/21/18 19:42 10/21/18 19:53 Morphine 4mg/Ml Syringe IV 10/21/18 19:43 4 mg ONCE ONE Administration Promethazine HCl 12.5 mg 10/21/18 19:42 10/21/18 19:53 Phenergan 25mg/Ml 1ml Vial IV 10/21/18 19:43 12.5 mg ONCE ONE Administration Sodium Chloride 25 ml 10/21/18 19:42 10/21/18 20:00 Sod Chlor 0.9% 25ml Bag IV 10/21/18 19:43 25 ml ONCE ONE Administration ORDERS Category Date Time Status CT abdomen pelvis wo con Stat Cat Scan 10/21/18 19:42 Taken Urinalysis and Microscopic Stat Lab 10/21/18 19:20 Ordered General Adult HPI - General Mode of Arrival: Ambulatory Limitations: No Limitations Description of Symptoms (Recalled from ER Triage Doc. by RN): Pt is having abd pain, weak, body aches, denies fever at this time. <Jovan Ling - Last Filed: 10/21/18 19:51> <Manoj Munoz - Last Filed: 10/21/18 22:07> - General Chief complaint: Abdominal Pain Stated complaint: stomach problems,weakness Time Seen by Provider: 10/21/18 19:30 - History of Present Illness HPI narrative: The patient has been having abdominal pain for about 3 weeks but admitted to this hospital 1 week ago for abdominal pain. Had mildly elevated pancreas enzymes. Had findings of possible enteritis on CT scan. He states the pain never went away but became more severe yesterday and has also been vomiting for 2 days. All complains of weakness and body aches. He has chills, but no fever. No diarrhea. He is a dialysis patient, gets dialysis Wednesday, Wednesday, and Wednesday in [place]. He had dialysis today. Has had an outpatient gallbladder ultrasound within the past couple of weeks that showed sludge. (Jovan Ling) - Related Data Home Medications Medication Instructions Recorded Confirmed Atorvastatin Calcium [Atorvastatin 40 mg PO DAILY 10/14/18 10/14/18 40mg Tab] Ergocalciferol (Vitamin D2) 50,000 unit PO WEEKLY 10/14/18 10/14/18 [Drisdol 50,000 units (1.25mg) capsule] Ferrous Gluconate [Ferrous 324 mg PO DAILY 10/14/18 10/14/18 Gluconate 324mg Tab] Folic Acid [Folic Acid 1mg tablet] 1 mg PO DAILY 10/14/18 10/14/18 Gabapentin [Gabapentin 100mg Cap] 100 mg PO BID 10/14/18 10/14/18 Hydralazine HCl [Apresoline 10mg 10 mg PO BID 10/14/18 10/14/18 tablet] Isosorbide Dinitrate [Isordil 10mg 10 mg PO BID 10/14/18 10/14/18 tablet] Lanthanum Carbonate [Fosrenol] 1,000 mg PO DAILY 10/14/18 10/14/18 Metoprolol Succinate 100 mg PO DAILY 10/14/18 10/14/18 Omeprazole [Omeprazole 20mg 20 mg PO DAILY 10/14/18 10/14/18 Capsule] raNITIdine HCl [Zantac] 150 mg PO BID 10/14/18 10/14/18 Previous Rx's Medication Instructions Recorded Dicyclomine HCl [Bentyl 10mg 10 mg PO BID #10 capsule 10/16/18 capsule] Ondansetron [Zofran 4mg ODT] 4 mg PO Q6HP PRN #30 tab.rapdis 10/16/18 Allergies Allergy/AdvReac Type Severity Reaction Status Date / Time No Known Allergies Allergy Verified 10/21/18 18:26 [facility] History - Hepatitis A Screen Drug use history?: No High risk sexual behaviors?: No History of sexually transmitted infection?: No Currently employed?: No Childcare worker?: No Do you have indoor plumbing?: Yes Do you have electricity?: Yes I have reviewed the patient's past medical history: Yes Medical History: Reports:: Coronary Artery Disease, Gall Bladder Disease, Gastroesophageal Reflux Disease(GERD), Hypertension, Renal Disease Denies:: Cancer, Diabetes Mellitus Type 1, Diabetes Mellitus Type 2 Comment: End-stage renal disease-hemodialysis 3 days a week Other Surgeries: Yes: Cardiac Catheterization, Coronary Stent, Other (kidney transplant) Amputation: No - Social History Smoking Status: Unknown if ever smoked Tobacco Type: smokeless tobacco Alcohol Intake: never Occupational Status: disabled - Psychiatric History Expresses thoughts of harming self/others: None Suicide Plan Description: No Plan Family Hx:: Hypertension <Jovan Ling - Last Filed: 10/21/18 19:51> - Hepatitis A Screen Attestation statement:: This patient has been screened for Hepatitis A risk factors. ROS Obtained: Yes All systems reviewed & no additional complaints - Constitutional Constitutional: Reports body ache, Reports chills, Reports fatigue, Denies fever(s) - Gastrointestinal Gastrointestingal: Reports: abdominal pain, nausea, vomiting. Denies: diarrhea <Jovan Ling - Last Filed: 10/21/18 19:51> Physical Exam - General General appearance: alert - Head Head exam: atraumatic, normocephalic - Eye Eye exam: Present: normal appearance, PERRL, EOMI - Neck Neck exam: Present: normal inspection, trachea midline - Chest Chest inspection: Present: normal inspection, symmetric chest wall rise - Respiratory Respiratory exam: Present: normal lung sounds bilaterally. Absent: respiratory distress - Cardiovascular Cardiovascular exam: Present: normal rhythm, tachycardia, normal heart sounds - Abdominal Exam Abdominal exam: Present: soft, tenderness, guarding. Absent: distention - Extremities Exam Extremities exam: Present: normal inspection, full ROM - Neurological Exam Neurological exam: Present: alert, oriented X3 - Psychiatric Psychiatric exam: Present: normal affect, normal mood - Skin Skin exam: Present: warm, dry <VaughnvijayJovan medellin - Last Filed: 10/21/18 19:51> - General Comment: Throwing up into trash can (Jovan Ling)
[2018-10-21 20:49] LABS: Albumin Level 4.3 gm/dL (3.4-5.0); Albumin/Globulin Ratio 0.8 (1.1-1.8); Anion Gap 16.3 mEq/L (5-15); Bilirubin,Total 0.5 mg/dL (0.2-1.0); Calcium 9.4 mg/dL (8.5-10.1); Globulin 5.1 gm/dl (1.3-3.2); Potassium 5.3 mmoL/L (3.5-5.1); Total Protein,Serum 9.4 gm/dL (6.4-8.2)
[2018-10-22 06:36] LABS: Basophils # 0.1 K/mm3 (0-0.2); Eosinophils # 0.2 K/mm3 (0.0-0.4); Eosinophils % 2.7 % (0.1-12.0); Hematocrit 43.2 % (42.0-52.0); Lymphocytes # 1.4 K/mm3 (0.7-4.5); Lymphocytes % 24.5 % (10-50); Mean Corpuscular HGB Conc 32.8 g/dL (31.8-35.4); Mean Corpuscular Hemoglobin 30.1 pg (27.0-31.2); Mean Corpuscular Volume 91.7 fl (80-94); Mean Platelet Volume 7.6 fl (7.4-10.4); Monocytes # 0.7 K/mm3 (0.1-1.0); Monocytes % 11.8 % (1.7-9.3); Neutrophils # 3.4 K/mm3 (1.8-7.8); Platelet Count 218 K/mm3 (142-424); Red Blood Count 4.71 M/mm3 (4.60-6.20); Red Cell Distribution Width 14.3 % (11.5-17.5); White Blood Count 5.7 K/mm3 (4.8-10.8)
[2018-10-22 06:47] LABS: Albumin Level 3.7 gm/dL (3.4-5.0); Anion Gap 13.7 mEq/L (5-15); Bilirubin,Total 0.5 mg/dL (0.2-1.0); Calcium 8.9 mg/dL (8.5-10.1); Potassium 4.7 mmoL/L (3.5-5.1)
[2018-10-22 06:48] LABS: Albumin/Globulin Ratio 0.9 (1.1-1.8); Globulin 4.3 gm/dl (1.3-3.2)
[2018-10-22 07:22] LABS: Hemoglobin 14.3 g/dL (14.1-18.0)
--- NOTE | 2018-10-22 07:25 | History & Physical Report ---
*Admission Date: 10/22/18 *Chief complaint: Vomiting *History of present illness: 58-year-old male with end-stage renal disease who is also status post renal transplant presented to the emergency department with 2 days of vomiting. Patient was admitted to the hospital 1 week ago with similar complaint. He r eports vomiting and nausea with poor p.o. intake. Intake is included primarily liquids. He tells me yesterday morning he was nauseous prior to his dialysis treatment. He began vomiting at dialysis. He continued to have episodes of vomiting throughout the day until he presented to the emergency department. He continued retching in the emergency department. Of note a CT scan of the abdomen and pelvis was performed once again which actually by radiologist reading has shown improvement compared to a week ago when his CT scan showed findings consistent with enteritis. Amylase and lipase performed in the ER were also decreased compared to 1 week prior. While patient did not have any significant abnormal findings on exam, imaging, labs, he did continue to vomit in the emergency department so was admitted for IV fluids and antiemetics. After arrival to the floor the patient did not have any further vomiting. This morning he is tolerating a liquid diet [facility] History Medical History: Reports:: Coronary Artery Disease, Gall Bladder Disease, Gastroesophageal Reflux Disease(GERD), Hypertension, Renal Disease (End-stage renal disease with hemodialysis --) Denies:: Cancer, Diabetes Mellitus Type 1, Diabetes Mellitus Type 2, MRSA Have you ever received a pneumonia vaccine?: Yes Have you received a flu vaccine this season?: No Other Surgeries: Yes: Cardiac Catheterization, Coronary Stent, Other (kidney transplant) Amputation: No - *Social History Educational Level: Attended Grade School Smoking Status: Unknown if ever smoked Tobacco Type: smokeless tobacco Alcohol Intake: never Alcohol Intake Frequency:: holidays/special occasions only Occupational Status: disabled Housing: house Household Members: none Travel in the last 8 weeks: None - Psychiatric History Expresses thoughts of harming self/others: None Suicide Plan Description: No Plan *Family Hx:: Hypertension Review of Systems - Review of Systems Review of systems:: pertinent systems reviewed and negative unless documented below - Constitutional Reports fatigue, Denies anorexia, Denies body ache(s), Denies chills, Denies daytime sleepiness - *Cardiovascular Denies chest pain, Denies chest pain at rest - *Respiratory Denies change in phlegm color, Denies chest congestion - *Gastrointestinal Reports abdominal pain, Reports nausea, Reports vomiting, Denies belching, Denies bloating, Denies change in bowel habits, Denies change in stools, Denies loose stools, Denies bright, red blood in stools, Denies pain with swallowing - *Genitourinary Denies difficulty urinating Meds Home Medications Medication Instructions Recorded Confirmed Type Atorvastatin Calcium [Atorvastatin 40 mg PO DAILY 10/14/18 10/14/18 History 40mg Tab] Ergocalciferol (Vitamin D2) 50,000 unit PO WEEKLY 10/14/18 10/21/18 History [Drisdol 50,000 units (1.25mg) capsule] Ferrous Gluconate [Ferrous 324 mg PO DAILY 10/14/18 10/14/18 History Gluconate 324mg Tab] Folic Acid [Folic Acid 1mg tablet] 1 mg PO DAILY 10/14/18 10/21/18 History Gabapentin [Gabapentin 100mg Cap] 100 mg PO BID 10/14/18 10/21/18 History Hydralazine HCl [Apresoline 10mg 10 mg PO BID 10/14/18 10/14/18 History tablet] Isosorbide Dinitrate [Isordil 10mg 10 mg PO BID 10/14/18 10/14/18 History tablet] Lanthanum Carbonate [Fosrenol] 1,000 mg PO TID 10/14/18 10/21/18 History Metoprolol Succinate 100 mg PO DAILY 10/14/18 10/21/18 History Omeprazole [Omeprazole 20mg 20 mg PO DAILY 10/14/18 10/21/18 History Capsule] raNITIdine HCl [Zantac] 150 mg PO BID 10/14/18 10/21/18 History Dicyclomine HCl [Bentyl 10mg 10 mg PO BID #10 capsule 10/16/18 Rx capsule] Ondansetron [Zofran 4mg ODT] 4 mg PO Q6HP PRN #30 tab.rapdis 10/16/18 Rx Azithromycin [Azithromycin 500mg 500 mg PO DAILY 10/21/18 10/22/18 History Tab] Allergies Allergy/AdvReac Type Severity Reaction Status Date / Time No Known Allergies Allergy Verified 10/21/18 18:26 Exam Vital signs and Labs for Last 24 Hours: Temp Pulse Resp BP Pulse Ox 98.1 F 83 16 119/72 96 10/22/18 04:00 10/22/18 04:00 10/22/18 04:00 10/22/18 04:00 10/22/18 04:00 Laboratory Results - last 24 hr 10/21/18 19:25: WBC 7.6, RBC 5.14, Hgb 16.2, Hct 46.9, MCV 91.1, MCH 31.4 H, MCHC 34.5, RDW 14.1, Plt Count 271, MPV 7.3 L, Neut % (Auto) 78.7, Lymph % (Auto) 12.4, Gregg % (Auto) 8.0, Eos % (Auto) 0.4, Baso % (Auto) 0.5, Neut # (Auto) 5.9, Lymph # (Auto) 0.9, Gregg # (Auto) 0.6, Eos # (Auto) 0.0, Baso # (Auto) 0.0 10/21/18 20:20: Sodium 136, Potassium 5.3 H, Chloride 91 L, Carbon Dioxide 34 H, Anion Gap 16.3 H, BUN 21 H, Creatinine 7.73 H, Estimated Creat Clear 9, Estimated GFR 7 L*, Est GFR ( Amer) 9 L*, Glucose 110 H, Calcium 9.4, Total Bilirubin 0.5, AST 21, ALT 29, Alkaline Phosphatase 264 H, Total Protein 9.4 H, Albumin 4.3, Globulin 5.1 H, Albumin/Globulin Ratio 0.8 L 10/21/18 20:20: Troponin I 0.06, Amylase 121 H, Lipase 259 10/22/18 06:20: WBC 5.7, RBC 4.71, Hct 43.2, MCV 91.7, MCH 30.1, MCHC 32.8, RDW 14.3, Plt Count 218, MPV 7.6, Neut % (Auto) 60.0, Lymph % (Auto) 24.5, Gregg % (Auto) 11.8 H, Eos % (Auto) 2.7, Baso % (Auto) 1.0, Neut # (Auto) 3.4, Lymph # (Auto) 1.4, Gregg # (Auto) 0.7, Eos # (Auto) 0.2, Baso # (Auto) 0.1 10/22/18 06:20: Sodium 139, Potassium 4.7, Chloride 93 L, Carbon Dioxide 37 H, Anion Gap 13.7, BUN 29 H D, Creatinine 8.76 H, Estimated Creat Clear 7, Estimated GFR 6 L*, Est GFR ( Amer) 8 L*, Glucose 95, Calcium 8.9, Total Bilirubin 0.5, AST 16, ALT 24, Alkaline Phosphatase 225 H, Total Protein 8.0, Albumin 3.7 D, Globulin 4.3 H, Albumin/Globulin Ratio 0.9 L I & O for Last 24 hours: Intake & Output 10/19/18 10/20/18 10/21/18 10/22/18 11:59 11:59 11:59 11:59 Weight 120 lb 8 oz Narrative: Patient is awake and alert sitting up in bed this morning. He is nontoxic appearing and in no distress. ENT exam reveals a moist oropharynx with poor dentition. Neck is without lymphadenopathy or carotid bruits. Lungs are clear to auscultation. Heart has a regular rate and rhythm. Abdomen is thin, soft, flat, nontender, nondistended with active bowel sounds. Patient can move all extremities. Assessment and Plan (1) Abdominal pain, generalized Current visit: Yes Status: Acute Category: Medical Code(s): R10.84 - Generalized abdominal pain (2) Enteritis Current visit: No Status: Acute Category: Medical Code(s): K52.9 - Noninfective gastroenteritis and colitis, unspecified - Assessment and plan all Dx Assessment and Plan for all problems:: Patient has now had these symptoms for 1 month. While I do believe it is related to a prolonged gastroenteritis should patient's symptoms persist through the weekend he will need further outpatient workup as to not interfere with his hemodialysis schedule. He has tolerated clear liquids this morning and so far has not indicated any pain or nausea. He will continue clear liquids at lunch and advance to full liquids at supper and be monitored through the night. Anticipate discharge tomorrow with further outpatient workup if necessary. A surgical consultation was ordered through the ER but this has been canceled as there is certainly no surgical issue here.
--- NOTE | 2018-10-22 09:32 | Pharmacy Consult Notes ---
[facility] Pharmacy VTE Monitoring - Patient Demographics Admission date: 10/22/18 Report Date: 10/22/18 Time: 09:32 Allergies/Adverse Reactions: Patient Allergies No Known Allergies Allergy (Verified 10/21/18 18:26) Height: 1.65 m Weight: 54.658 kg Patient Problems: Current Active Problems Abdominal pain, generalized (Acute) Vomiting (Acute) - VTE Risk Labs: VTE Related Lab Results Hgb 14.3 g/dL (14.1-18.0) D 10/22/18 06:20 Hct 43.2 % (42.0-52.0) 10/22/18 06:20 Plt Count 218 K/mm3 (142-424) 10/22/18 06:20 BUN 29 mg/dL (7-18) H D 10/22/18 06:20 Creatinine 8.76 mg/dL (0.70-1.30) H 10/22/18 06:20 Estimated Creat Clear 7 mL/min (50-200) 10/22/18 06:20 VTE Score: 5 VTE Risk Level: Low Risk - Prophylaxis VTE Prophylaxis Ordered?: Yes Types of VTE Prophylaxis: TEDS Knee High Location of Applied Device: Bilateral Lower Extremeties
--- NOTE | 2018-10-23 07:11 | Discharge Summary ---
General - General Admission date:: 10/21/18 Discharge date: 10/23/18 HPI HPI: 58-year-old male with end-stage renal disease who is also status post renal transplant presented to the emergency department with 2 days of vomiting. Patient was admitted to the hospital 1 week ago with similar complaint. He reports vomiting and nausea with poor p.o. intake. Intake is included primarily liquids. He tells me yesterday morning he was nauseous prior to his dialysis treatment. He began vomiting at dialysis. He continued to have episodes of vomiting throughout the day until he presented to the emergency department. He continued retching in the emergency department. Of note a CT scan of the abdomen and pelvis was performed once again which actually by radiologist reading has shown improvement compared to a week ago when his CT scan showed findings consistent with enteritis. Amylase and lipase performed in the ER were also decreased compared to 1 week prior. While patient did not have any significant abnormal findings on exam, imaging, labs, he did continue to vomit in the emergency department so was admitted for IV fluids and antiemetics. After arrival to the floor the patient did not have any further vomiting. This morning he is tolerating a liquid diet Hospital Course Hospital Course: Patient was admitted and placed on clear liquids. He was given Zofran in the emergency department because of persistent vomiting. Vomiting ceased once patient arrived to the medical surgical wing. He had no further vomiting the rest of his hospitalization. Patient complained of nausea 2 more times during his entire hospitalization. This was medicated with antiemetics. He tolerated clear liquids on the and on the evening of the was advanced to full liquids which she also tolerated without worsening nausea or pain. His abdominal exam had actually improved compared to his hospitalization a week prior. Patient is a thin male and his abdomen was soft and nontender with normal bowel sounds during hospitalization. The week before the patient did have some left mid and lower quadrant abdomen tenderness. On the morning of the as the patient had not had any further vomiting and was tolerating diet he was discharged home again. He will follow-up in my office in 2 days. If symptoms persist at that time we will proceed with additional outpatient testing to possibly include an upper GI with small bowel follow-through as his CT scan from over a week ago showed enteritis or possibly an EGD. Patient was discharged home on the morning of the and will follow-up in my office on October 25 at 11 AM Objective Vital signs: Temp Pulse Resp BP Pulse Ox 97.9 F 60 16 111/66 97 10/23/18 04:00 10/23/18 04:00 10/23/18 04:00 10/23/18 04:00 10/23/18 04:00 Results Labs on day of discharge: Labs from last 24 hours 10/22/18 06:20 Hgb 14.3 D DS: Diagnosis - Discharge Diagnosis (1) Abdominal pain, generalized Status: Acute (2) Enteritis Status: Acute Discharge Plan - Patient Discharge Instructions ACTIVITY: Continue current activity DIET: continue same diet - Follow up Plan Follow up with: Demetri Gilman MD [Primary Care Provider] - 10/25/18 11:00 am Disposition: Home, Self-Assisted Medications: Home Medications Medication Instructions Recorded Confirmed Type Atorvastatin Calcium [Atorvastatin 40 mg PO DAILY 10/14/18 10/22/18 History 40mg Tab] Ergocalciferol (Vitamin D2) 50,000 unit PO WEEKLY 10/14/18 10/21/18 History [Drisdol 50,000 units (1.25mg) capsule] Ferrous Gluconate [Ferrous 324 mg PO DAILY 10/14/18 10/22/18 History Gluconate 324mg Tab] Folic Acid [Folic Acid 1mg tablet] 1 mg PO DAILY 10/14/18 10/21/18 History Gabapentin [Gabapentin 100mg Cap] 100 mg PO BID 10/14/18 10/21/18 History Hydralazine HCl [Apresoline 10mg 10 mg PO BID 10/14/18 10/22/18 History tablet] Isosorbide Dinitrate [Isordil 10mg 10 mg PO BID 10/14/18 10/22/18 History tablet] Lanthanum Carbonate [Fosrenol] 1,000 mg PO TID 10/14/18 10/21/18 History Metoprolol Succinate 100 mg PO DAILY 10/14/18 10/21/18 History Omeprazole [Omeprazole 20mg 20 mg PO DAILY 10/14/18 10/21/18 History Capsule] raNITIdine HCl [Zantac] 150 mg PO BID 10/14/18 10/21/18 History Ondansetron [Zofran 4mg ODT] 4 mg PO Q6HP PRN #30 tab.rapdis 10/16/18 10/22/18 Rx Azithromycin [Azithromycin 500mg 500 mg PO DIRECTED 10/21/18 10/22/18 History Tab] Dicyclomine HCl [Bentyl 10mg 10 mg PO BID 10/22/18 10/22/18 History capsule] Ondansetron [Zofran 4mg ODT] 4 mg PO Q6HP PRN #30 tab.rapdis 10/23/18 Rx Prescriptions/Medication Reconciliation: New Ondansetron [Zofran 4mg ODT] 4 mg PO Q6HP PRN #30 tab.rapdis PRN Reason: Nausea Continue Omeprazole [Omeprazole 20mg Capsule] 20 mg PO DAILY Folic Acid [Folic Acid 1mg tablet] 1 mg PO DAILY Ferrous Gluconate [Ferrous Gluconate 324mg Tab] 324 mg PO DAILY Ergocalciferol (Vitamin D2) [Drisdol 50,000 units (1.25mg) capsule] 50,000 unit PO WEEKLY raNITIdine HCl [Zantac] 150 mg PO BID Metoprolol Succinate 100 mg PO DAILY Isosorbide Dinitrate [Isordil 10mg tablet] 10 mg PO BID Hydralazine HCl [Apresoline 10mg tablet] 10 mg PO BID Atorvastatin Calcium [Atorvastatin 40mg Tab] 40 mg PO DAILY Ondansetron [Zofran 4mg ODT] 4 mg PO Q6HP PRN #30 tab.rapdis PRN Reason: Nausea Gabapentin [Gabapentin 100mg Cap] 100 mg PO BID Lanthanum Carbonate [Fosrenol] 1,000 mg PO TID Dicyclomine HCl [Bentyl 10mg capsule] 10 mg PO BID Discontinued Azithromycin [Azithromycin 500mg Tab] 500 mg PO DIRECTED
== END 2018-10-23 08:34 | disposition home or self-care (01) | DRG 391 ==
LOC: 2ND 17:59 → UTC 17:59 → OBSVTOIN 21:48 → 2ND 22:56
PROVIDERS: ADMIT Internal Medicine Adolescent Medicine; ATTEND Family Medicine
CPT/HCPCS: 36415; 74176; 80053; 82150; 83690; 84484; 85025; 93005; 96374; 96375; 99284; J2405

== ENCOUNTER → 2018-10-27 10:14 | Outpatient (CLI) | payer MEDICARE, OTHER, SELFPAY ==
--- NOTE | 2018-10-27 10:19 | NM_ITS ---
NM hepatobiliary wo pharm HISTORY: Abdominal pain, vomiting, gallbladder sludge on ultrasound ITS.REASON: ABD PAIN,RECURRENT VOMITING ORDERING PHYSICIAN: Demetri Gilman MD PATIENT AGE: 58 years COMPARISON: 10/14/2018, 09/23/2018 DOSE: 8.35 mci tc choletec 1.25 mcg CCK. Pain was reported with CCK infusion. The patient did vomit after the exam FINDINGS: Homogeneous activity is present within the hepatic parenchyma. Activity is present in the gallbladder by 15 minutes. Activity is present in the small bowel by 45 minutes. The gallbladder ejection fraction is calculated to be Greater than 87% The patient did report pain during CCK infusion and vomiting after the exam. IMPRESSION: 1. No evidence of common or cystic duct obstruction. 2. Normal gallbladder ejection fraction. 3. The patient did report symptoms with CCK infusion
== END ==
PROVIDERS: PCP Family Medicine; Visit Provider Family Medicine
DX: R10.9 Unspecified abdominal pain (principal); R11.10 Vomiting, unspecified
CPT/HCPCS: 78226; A9537; J2805

== ENCOUNTER 2019-03-11 20:05 | Emergency (ER) | payer MEDICARE, OTHER, SELFPAY ==
[2019-03-11 20:06] VITALS: BP 146/104; PULSE 137; RESP 18; TEMP 36.4; O2SAT 98; BMI 21.6
[2019-03-11 20:08] VITALS: BMI 21.2
--- NOTE | 2019-03-11 20:09 | CT_ITS ---
CT abdomen pelvis wo con CLINICAL INDICATION: Severe generalized abdominal pain and back pain, history of renal transplant ITS.REASON: abd pain ORDERING PHYSICIAN: Manoj Munoz MD PATIENT AGE: 58 years COMPARISON: 01/21/2019 TECHNIQUE: Axial images obtained with sagittal and coronal reformats. All CT scans at the facility use one or more dose reduction, viz: automated exposure control, ma/kV adjustment per patient size (including targeted exams where dose is matched to indication, i.e. head), or iterative reconstruction technique. PROCEDURE: Oral Contrast: None IV Contrast: None . FINDINGS: There is cardiomegaly with small bilateral effusions and fluid in the right major fissure. Pericardium is also slightly thickened. There is generalized motion artifact ureters fine detail. There is moderate amount of ascites. The liver, spleen, adrenal glands, and pancreas have an unremarkable unenhanced appearance. The kidneys are small with multiple cysts with no change in the hyperdense nodule in the mid aspect of the left kidney. Transplant kidney in the right iliac fossa with diffuse cortical thinning. No hydronephrosis. Nonspecific bowel gas pattern. No no intestinal obstruction or free air. There is mild thickening of the sigmoid colon nonspecific but could be related to colitis. Postsurgical changes of the sigmoid colon with colonic diverticulosis. No evidence of diverticulitis. There is mild diffuse subcutaneous edema. Moderate amount of fluid is present in the pelvis. No acute bony anomalies. IMPRESSION: 1. Cardiomegaly with bilateral effusions, ascites, and diffuse subcutaneous edema which may be due to CHF and/or anasarca 2. Diffuse ascites. 3. 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 Mild thickening of the sigmoid colon nonspecific but could be related to colitis.
[2019-03-11 20:30] LABS: Microscopic, Urine URINE MICROSCOPIC (MICROSCOPIC)
[2019-03-11 20:32] LABS: Basophils % 0.7 % (0.1-2.0); Eosinophils # 0.1 K/mm3 (0.0-0.4); Hematocrit 46.4 % (42.0-52.0); Hemoglobin 15.4 g/dL (14.1-18.0); Lymphocytes # 0.9 K/mm3 (0.7-4.5); Lymphocytes % 19.3 % (10-50); Mean Corpuscular HGB Conc 33.2 g/dL (31.8-35.4); Mean Corpuscular Hemoglobin 31.5 pg (27.0-31.2); Mean Platelet Volume 9.7 fl (7.4-10.4); Monocytes # 0.4 K/mm3 (0.1-1.0); Monocytes % 8.2 % (1.7-9.3); Neutrophils # 3.2 K/mm3 (1.8-7.8); Neutrophils % 69.9 % (37.0-80.0); Platelet Count 114 K/mm3 (142-424); Red Blood Count 4.88 M/mm3 (4.60-6.20); Red Cell Distribution Width 17.8 % (11.5-17.5); White Blood Count 4.6 K/mm3 (4.8-10.8)
[2019-03-11 20:33] LABS: Appearance,Urine CLEAR (Clear); Bilirubin,Urine Negative (Negative); Blood, Urine 1+ (Negative); Color,Urine YELLOW (Yellow); Glucose,Urine (UA) Negative (Negative); Ketones,Urine Negative (Negative); Leukocyte Esterase,Urine Negative (Negative); Nitrate,Urine Negative (Negative); PH,Urine 8.5 (5.0-8.5); Protein,Urine 3+ (Negative); Urobilinogen,Urine 0.2 EU/dl (0.2)
[2019-03-11 20:36] LABS: Amorphous Sediment,Urine Trace /lpf
[2019-03-11 20:44] LABS: Alanine Aminotransferase 46 U/L (12-78); Albumin Level 3.4 gm/dL (3.4-5.0); Albumin/Globulin Ratio 0.8 (1.1-1.8); Alkaline Phosphatase 330 U/L (46-116); Amylase 124 U/L (25-115); Aspartate Amino Transferase 57 U/L (15-37); Bilirubin,Total 1.5 mg/dL (0.2-1.0); Blood Urea Nitrogen 59 mg/dL (7-18); Calcium 8.6 mg/dL (8.5-10.1); Carbon Dioxide 32 mmol/L (21.0-32.0); Chloride 95 mmol/L (98-107); Creatinine Clearance Estimated 8 mL/min (50-200); Estimated Glomerular Filt Rate 6 ml/min (>60); Globulin 4.1 gm/dl (1.3-3.2); Glucose 86 mg/dL (74-106); Lipase 414 u/L (73-393); Sodium 140 mmol/L (136-145); Total Protein,Serum 7.5 gm/dL (6.4-8.2)
[2019-03-11 20:48] LABS: Creatinine,Serum 8.63 mg/dL (0.70-1.30)
[2019-03-11 20:49] LABS: GFR (African American) 8 ML/MIN (>60)
[2019-03-11 20:52] LABS: Strep Scrn Group A (Rapid) Negative (Negative)
--- NOTE | 2019-03-11 20:56 | XR_ITS ---
XR chest 2V HISTORY: ITS.REASON: congestion ORDERING PHYSICIAN: Manoj Munoz MD PATIENT AGE: 58 years COMPARISON: 02/04/2019 FINDINGS: There is cardiomegaly with pulmonary venous congestion consistent with CHF. Fluid is present within the right minor fissure. There is thickening also of the right major fissure suggesting fissural fluid. There is increased density in the right lower lobe which could be related to the fissural thickening or underlying atelectasis or pneumonia. Small bilateral pleural effusions are present. 18 vascular stent is present in the left axillary region. IMPRESSION: Congestive heart failure with pleural effusions and with patchy density in the right lung base which may relate to an area of pneumonia, edema, atelectasis, or superimposed density from the fissural thickening
--- NOTE | 2019-03-11 20:56 | [facility].EDGENADL ---
ED Disposition Clinical Impression: CRF (chronic renal failure), Dependence on renal dialysis, CHF (congestive heart failure) Disposition: Xfer Short-Term Hosp Condition on Discharge: Fair Referrals: Demetri Gilman MD [Primary Care Provider] - Time of Disposition: 22:40 - Critical Care Critical Care Time: No Attestation: On 03/11/19, the high probability of a clinically significant, sudden or life threatening deterioration of the following system(s) required my full and direct attention, intervention and personal management. The time I documented below is in addition to time spent performing reported procedures but includes the following listed in this critical care notation. Medical Decision Making - Medical Records Medical records reviewed: Yes: I reviewed the patient's medical records. - Richard Inquiry Pt receiving controlled substance: No Richard was queried for this patient: No Vital Signs: 03/11/19 20:06 Temperature 97.6 F Temperature Source Oral Pulse Rate [Right Brachial] 137 H Respiratory Rate 18 Blood Pressure [Right Arm] 146/104 H Blood Pressure Mean [Right Arm] 118 Blood Pressure Source [Right Arm] Automatic Cuff Blood Pressure Position [Right Arm] Sitting 02 Sat by Pulse Oximetry 98 Oxygen Delivery Method Room Air - Lab Data Lab results reviewed: Yes: I reviewed the patient's lab results. Lab Results 03/11/19 20:12: Urine Color Yellow, Urine Appearance Clear, Urine pH 8.5, Ur Specific [place] 1.020, Urine Protein 3+, Urine Glucose (UA) Negative, Urine Ketones Negative, Urine Blood 1+, Urine Nitrate Negative, Urine Bilirubin Negative, Urine Urobilinogen 0.2, Ur Leukocyte Esterase Negative, Urine RBC 5-10, Urine WBC 3-5, Amorphous Sediment Trace 03/11/19 20:15: WBC 4.6 L, RBC 4.88, Hgb 15.4, Hct 46.4, MCV 95.0 H, MCH 31.5 H, MCHC 33.2, RDW 17.8 H, Plt Count 114 L, MPV 9.7, Neut % (Auto) 69.9, Lymph % (Auto) 19.3, [place] % (Auto) 8.2, Eos % (Auto) 2.0, Baso % (Auto) 0.7, Neut # (Auto) 3.2, Lymph # (Auto) 0.9, [place] # (Auto) 0.4, Eos # (Auto) 0.1, Baso # (Auto) 0.0 03/11/19 20:15: Sodium 140, Potassium 5.0, Chloride 95 L, Carbon Dioxide 32, Anion Gap 18.0 H, BUN 59 H, Creatinine 8.63 H, Estimated Creat Clear 8, Estimated GFR 6 L*, Est GFR ( Amer) 8 L*, Glucose 86, Calcium 8.6, Total Bilirubin 1.5 H, AST 57 H, ALT 46, Alkaline Phosphatase 330 H, Total Protein 7.5, Albumin 3.4, Globulin 4.1 H, Albumin/Globulin Ratio 0.8 L, Amylase 124 H, Lipase 414 H 03/11/19 20:20: Group A Strep Rapid Negative Result diagrams: 03/11/19 20:15 03/11/19 20:15 Orders (Tests/Meds): ED MEDICATIONS Generic Name Dose Route Start Last Admin Trade Name Freq PRN Reason Stop Dose Admin Sodium Chloride 1,000 mls @ 999 mls/hr 03/11/19 20:15 03/11/19 20:24 Sod Chlor 0.9% 1000ml Bag IV 03/11/19 21:15 999 mls/hr .Q1H1M GAGANDEEP Administration Discontinued Medications Generic Name Dose Route Start Last Admin Trade Name Freq PRN Reason Stop Dose Admin Ketorolac Tromethamine 30 mg 03/11/19 20:09 03/11/19 20:24 Toradol 30mg/Ml Vial IV 03/11/19 20:10 30 mg ONCE ONE Administration Ondansetron HCl 4 mg 03/11/19 20:09 03/11/19 20:24 Zofran 4mg/2ml Vial IV 03/11/19 20:10 4 mg ONCE ONE Administration ORDERS Category Date Time Status CT abdomen pelvis wo con Stat Cat Scan 03/11/19 20:09 Taken CXR 2 view (NOT portable) [XR chest 2V] Stat Exams 03/11/19 20:56 Taken Strep Screen Confirmation Stat Micro 03/11/19 20:20 Received - Physician Consults Physician Consulted: flowers Time: 22:40 Reason -: Pt condition, Transfer to another facilty Comment/Response: nephrology services, urgent dialysis General Adult HPI - General Chief complaint: PAIN Stated complaint: STOMACH AND BACK PAIN Time Seen by Provider: 03/11/19 20:10 Mode of Arrival: Family Vehicle Source of Information: Patient Limitations: No Limitations Description of Symptoms (Recalled from ER Triage Doc. by RN): Pt c/o
--- NOTE | 2019-03-11 21:11 | ED_ITS ---
ED Disposition Clinical Impression: CRF (chronic renal failure), Dependence on renal dialysis, CHF (congestive heart failure) Disposition: Xfer Short-Term Hosp Condition on Discharge: Fair Referrals: Demetri Gilman MD [Primary Care Provider] - Time of Disposition: 22:40 - Critical Care Critical Care Time: No Attestation: On 03/11/19, the high probability of a clinically significant, sudden or life threatening deterioration of the following system(s) required my full and direct attention, intervention and personal management. The time I documented below is in addition to time spent performing reported procedures but includes the following listed in this critical care notation. Medical Decision Making - Medical Records Medical records reviewed: Yes: I reviewed the patient's medical records. - Richard Inquiry Pt receiving controlled substance: No Richard was queried for this patient: No Vital Signs: 03/11/19 20:06 Temperature 97.6 F Temperature Source Oral Pulse Rate [Right Brachial] 137 H Respiratory Rate 18 Blood Pressure [Right Arm] 146/104 H Blood Pressure Mean [Right Arm] 118 Blood Pressure Source [Right Arm] Automatic Cuff Blood Pressure Position [Right Arm] Sitting 02 Sat by Pulse Oximetry 98 Oxygen Delivery Method Room Air - Lab Data Lab results reviewed: Yes: I reviewed the patient's lab results. Lab Results 03/11/19 20:12: Urine Color Yellow, Urine Appearance Clear, Urine pH 8.5, Ur Specific [place] 1.020, Urine Protein 3+, Urine Glucose (UA) Negative, Urine Ketones Negative, Urine Blood 1+, Urine Nitrate Negative, Urine Bilirubin Negative, Urine Urobilinogen 0.2, Ur Leukocyte Esterase Negative, Urine RBC 5- 10, Urine WBC 3-5, Amorphous Sediment Trace 03/11/19 20:15: WBC 4.6 L, RBC 4.88, Hgb 15.4, Hct 46.4, MCV 95.0 H, MCH 31.5 H, MCHC 33.2, RDW 17.8 H, Plt Count 114 L, MPV 9.7, Neut % (Auto) 69.9, Lymph % (Auto) 19.3, [place] % (Auto) 8.2, Eos % (Auto) 2.0, Baso % (Auto) 0.7, Neut # (Auto) 3.2, Lymph # (Auto) 0.9, [place] # (Auto) 0.4, Eos # (Auto) 0.1, Baso # (Aut o) 0.0 03/11/19 20:15: Sodium 140, Potassium 5.0, Chloride 95 L, Carbon Dioxide 32, Anion Gap 18.0 H, BUN 59 H, Creatinine 8.63 H, Estimated Creat Clear 8, Estima barb GFR 6 L*, Est GFR ( Amer) 8 L*, Glucose 86, Calcium 8.6, Total Bilirubin 1.5 H, AST 57 H, ALT 46, Alkaline Phosphatase 330 H, Total Protein 7.5, Albumin 3.4, Globulin 4.1 H, Albumin/Globulin Ratio 0.8 L, Amylase 124 H, Lipase 414 H 03/11/19 20:20: Group A Strep Rapid Negative Result diagrams: 03/11/19 20:15 03/11/19 20:15 Orders (Tests/Meds): ED MEDICATIONS Generic Name Dose Route Start Last Admin Trade Name Freq PRN Reason Stop Dose Admin Sodium Chloride 1,000 mls @ 999 mls/hr 03/11/19 20:15 03/11/19 20:24 Sod Chlor 0.9% 1000ml Bag IV 03/11/19 21:15 999 mls/hr .Q1H1M GAGANDEEP Administration Discontinued Medications Generic Name Dose Route Start Last Admin Trade Name Freq PRN Reason Stop Dose Admin Ketorolac Tromethamine 30 mg 03/11/19 20:09 03/11/19 20:24 Toradol 30mg/Ml Vial IV 03/11/19 20:10 30 mg ONCE ONE Administration Ondansetron HCl 4 mg 03/11/19 20:09 03/11/19 20:24 Zofran 4mg/2ml Vial IV 03/11/19 20:10 4 mg
--- NOTE | 2019-03-11 22:30 | PC.NURSE ---
on phone with dr. flowers
[2019-03-11 22:38] VITALS: BP 148/94; PULSE 134; RESP 22; O2SAT 97
[2019-03-11 23:09] VITALS: BP 144/96; PULSE 96; RESP 16; TEMP 36.4; O2SAT 93
== END 2019-03-11 23:14 | disposition short-term general hospital (02) ==
PROVIDERS: Emergency Provider Emergency Medicine; PCP Family Medicine
DX: I12.0 Hypertensive chronic kidney disease with stage 5 chronic kidney disease or end stage renal disease (principal); N18.6 End stage renal disease; Z99.2 Dependence on renal dialysis; I25.10 Atherosclerotic heart disease of native coronary artery without angina pectoris; K21.9 Gastro-esophageal reflux disease without esophagitis
CPT/HCPCS: 71046; 74176; 80053; 81001; 82150; 83690; 85025; 87430; 93005; 96365; 96375; 99284; J2405